=== PATIENT | male | born 1970 | race African-American/Black ===

== ENCOUNTER 2017-11-17 08:37 | Emergency (ER) | payer SELFPAY ==
[~2017-11-17] VITALS: Ht 182.9 cm; Wt 109.0 kg
[2017-11-17] MEDS ORDERED: KETOROLAC 30MG/ML VIAL IM ONE (09:45)
[2017-11-17] MEDS ORDERED: METHOCARBAMOL 500MG TABLET PO ONE (09:45)
[2017-11-17 12:23] VITALS: BP 134/91
== END 2017-11-17 12:28 | disposition home or self-care (01) ==
LOC: ER 09:08
DX: M54.41 Lumbago with sciatica, right side (principal); G89.29 Other chronic pain; E66.9 Obesity, unspecified; K57.92 Diverticulitis of intestine, part unspecified, without perforation or abscess without bleeding; F17.200 Nicotine dependence, unspecified, uncomplicated
CPT/HCPCS: 72100; 96372; 99284; J1885

== ENCOUNTER 2017-12-08 08:52 | Emergency (ER) | payer SELFPAY ==
[~2017-12-08] VITALS: Ht 175.3 cm; Wt 110.0 kg
[2017-12-08] MEDS ORDERED: TRAMADOL 50MG TABLET PO ONE (10:30)
[2017-12-08 10:31] VITALS: BP 131/88
== END 2017-12-08 11:00 | disposition home or self-care (01) ==
LOC: ER 09:32
DX: M54.16 Radiculopathy, lumbar region (principal)
CPT/HCPCS: 99283

== ENCOUNTER 2018-08-13 11:51 | Emergency (ER) | payer SELFPAY ==
[~2018-08-13] VITALS: Ht 182.9 cm; Wt 100.0 kg
[2018-08-13 12:24] VITALS: BP 154/110
== END 2018-08-13 14:32 | disposition home or self-care (01) ==
LOC: ER 11:51
DX: M67.431 Ganglion, right wrist (principal); F12.10 Cannabis abuse, uncomplicated; F17.200 Nicotine dependence, unspecified, uncomplicated; Z98.890 Other specified postprocedural states
CPT/HCPCS: 99281